=== PATIENT | male | born 1990 | race Caucasian/White ===

== ENCOUNTER 2020-05-03 06:47 | Emergency (ER) | payer BC ==
[~2020-05-03] VITALS: Ht 185.4 cm; Wt 113.0 kg
--- NOTE | 2020-05-03 07:17 | PHYS DOC ---
Past History Past Medical History: Kidney Stones Past Surgical History: Tonsillectomy Alcohol Use: None General Adult EDM: Chief Complaint: ABDOMINAL PAIN HPI: HPI: 30-year-old male presents with left flank pain and hematuria. He had generalized abdominal discomfort yesterday most of the day. He does thought it was gas pain. The pain moved to the left flank last night. He had some dark- colored urine overnight had a little bit of rick blood early this morning. He decided he should get it evaluated. His pain is 0 out of 10 at this time. He denies fever chills. He has had 1 previous kidney stone. Review of Systems: Review of Systems: Constitutional: Denies fever or chills Eyes: Denies change in visual acuity HENT: Denies nasal congestion or sore throat Respiratory: Denies cough or shortness of breath Cardiovascular: Denies chest pain or edema GI: Denies abdominal pain, nausea, vomiting, bloody stools or diarrhea : Denies dysuria Musculoskeletal: Denies back pain or joint pain Integument: Denies rash Neurologic: Denies headache, focal weakness or sensory changes Endocrine: Denies polyuria or polydipsia Lymphatic: Denies swollen glands Psychiatric: Denies depression or anxiety Heart Score: Risk Factors: Risk Factors: DM, Current or recent (<one month) smoker, HTN, HLP, family history of CAD, obesity. Risk Scores: Score 0 - 3: 2.5% MACE over next 6 weeks - Discharge Home Score 4 - 6: 20.3% MACE over next 6 weeks - Admit for Clinical Observation Score 7 - 10: 72.7% MACE over next 6 weeks - Early Invasive Strategies Allergies: Allergies: Allergies Coded Allergies Type Severity Reaction Last Updated Verified Iodine and Iodide Containing Produc Allergy Unknown 05/03/20 Yes Physical Exam: PE: Constitutional: Well developed, well nourished, no acute distress, non-toxic appearance. [] HENT: Normocephalic, atraumatic, bilateral external ears normal, oropharynx moist, no oral exudates, nose normal. [] Eyes: PERRLA, EOMI, conjunctiva normal, no discharge. [] Neck: Normal range of motion, no tenderness, supple, no stridor. [] Cardiovascular: Heart rate regular rhythm, no murmur [] Lungs & Thorax: Bilateral breath sounds clear to auscultation [] Abdomen: Bowel sounds normal, soft, no tenderness, no masses, no pulsatile masses. [] Skin: Warm, dry, no erythema, no rash. [] Back: No tenderness, no CVA tenderness. [] Extremities: No tenderness, no cyanosis, no clubbing, ROM intact, no edema. [] Neurologic: Alert and oriented X 3, normal motor function, normal sensory function, no focal deficits noted. [] Psychologic: Affect normal, judgement normal, mood normal. [] Current Patient Data: Vital Signs: Vital Signs Date Time Temp Pulse Resp B/P (MAP) Pulse Ox O2 Delivery O2 Flow Rate FiO2 05/03/20 07:00 98.0 60 16 134/89 (104) 99 Room Air EKG: EKG: [] Radiology/Procedures: Radiology/Procedures: [] Impressions: CT ABDOMEN PELVIS WO CONTRAST History: Reason: left flank pain,hx stones - No surgeries / Spl. Instructions: / History: Technique: Noncontrast examination of the abdomen and pelvis. Coronal and sagittal reconstructions were performed. Exposure: One or more of the following individualized dose reduction techniques were utilized for this examination: 1. Automated exposure control 2. Adjustment of the mA and/or kV according to patient size 3. Use of iterative reconstruction technique. Comparison: None Findings: Lower chest: No consolidation or pleural effusion. Abdomen and pelvis: The liver, spleen, adrenal glands, pancreas and gallbladder are unremarkable. No biliary ductal dilatation. Mild left hydronephrosis. Left perinephric and periureteral fat stranding. 5 x 3 mm left proximal ureteral obstructing calculus. Decompressed urinary bladder. Punctate nonobstructing bilateral renal calculi, left greater than right. No right hydronephrosis. Small left inferior renal hypodensity, likely cyst. Normal appendix. No evidence of bowel obstruction. No pathologic lymphadenopathy. No ascites. Bones: No pathologic osseous lesions. Impression: 1. 5 mm left proximal ureteral obstructing calculus contributing to mild left hydronephrosis with perinephric/periureteral fat stranding. 2. Bilateral nonobstructing intrarenal calculi. Electronically signed by: Yosvany Moore DO (05/03/2020 7:37 AM) [id number] DICTATED AND SIGNED BY: YOSVANY MOORE DO DATE: 05/03/20 0737 CC: JOAQUIM VILLELA DO; REINALDO RODRIGUEZ MD ~ Course & Med Decision Making: Course & Med Decision Making Pertinent Labs and Imaging studies reviewed. (See chart for details) The patient's labs are unremarkable. His urinalysis shows blood but no bacteria. His CT scan shows an obstructing 5 x 3 stone in the proximal ureter by a left with mild left hydronephrosis. His creatinine is currently normal. There is a possibility the stone will pass. I will discharge the patient with Flomax and [place] 5/325. I have also advised that he get a urology referral from his primary care physician today and get set up in case this does not pass. Patient stable for discharge at this time. [] Dragon Disclaimer: Dragon Disclaimer: This electronic medical record was generated, in whole or in part, using a voice recognition dictation system. Departure Departure: Impression: Primary Impression: Ureterolithiasis Additional Impression: Nephrolithiasis Disposition: HOME/RESIDENCE PRIOR TO ADM Condition: STABLE Referrals: REINALDO RODRIGUEZ MD (PCP) Patient Instructions: Kidney Stones, [id number] Hydrocodone Bit/Acetaminophen ([place] 5-325 TABLET) 1 Each Tablet 1 TAB PO PRN Q6HRS PRN for PAIN, #20 TAB 0 Refills Prov: JAOQUIM VILLELA DO 05/03/20 Tamsulosin Hcl (FLOMAX) 0.4 Mg Cap.er.24h 1 CAP PO DAILY for kidney stone for 14 Days, #14 CAP 0 Refills Prov: JOAQUIM VILLELA DO 05/03/20 Justification of Admission: Justification of Admission: Justification of Admission Dx: N/A JOAQUIM VILLELA DO May 03, 2020 07:17
[2020-05-03] MEDS ORDERED: IV NORMAL SALINE 1,000ML 1,000 ML IV ONE (07:30)
--- NOTE | 2020-05-03 07:40 | RAD ---
CT ABDOMEN PELVIS WO CONTRAST History: Reason: left flank pain,hx stones - No surgeries / Spl. Instructions: / History: Technique: Noncontrast examination of the abdomen and pelvis. Coronal and sagittal reconstructions were performed. Exposure: One or more of the following individualized dose reduction techniques were utilized for this examination: 1. Automated exposure control 2. Adjustment of the mA and/or kV according to patient size 3. Use of iterative reconstruction technique. Comparison: None Findings: Lower chest: No consolidation or pleural effusion. Abdomen and pelvis: The liver, spleen, adrenal glands, pancreas and gallbladder are unremarkable. No biliary ductal dilatation. Mild left hydronephrosis. Left perinephric and periureteral fat stranding. 5 x 3 mm left proximal ureteral obstructing calculus. Decompressed urinary bladder. Punctate nonobstructing bilateral renal calculi, left greater than right. No right hydronephrosis. Small left inferior renal hypodensity, likely cyst. Normal appendix. No evidence of bowel obstruction. No pathologic lymphadenopathy. No ascites. Bones: No pathologic osseous lesions. Impression: 1. 5 mm left proximal ureteral obstructing calculus contributing to mild left hydronephrosis with perinephric/periureteral fat stranding. 2. Bilateral nonobstructing intrarenal calculi. Electronically signed by: Yosvany Baez DO (05/03/2020 7:37 AM) [id number]
[2020-05-03 07:44] LABS: BASO # 0.1 x10^3/uL (0.0-0.2); BASO % 1 % (0-3); EOS # 0.2 x10^3/uL (0.0-0.7); EOS % 3 % (0-3); HEMATOCRIT 46.4 % (39.0-53.0); HEMOGLOBIN 16.1 g/dL (13.0-17.5); LYMPH # 2.4 x10^3/uL (1.0-4.8); LYMPH % 41 % (24-48); MEAN CORPUSCULAR HEMOGLOBIN 31 pg (25-35); MEAN CORPUSCULAR HGB CONC 35 g/dL (31-37); MEAN CORPUSCULAR VOLUME 89 fL (79-100); MONO # 0.5 x10^3/uL (0.0-1.1); MONO % 8 % (0-9); NEUT # 2.7 x10^3uL (1.8-7.7); NEUT % 47 % (31-73); PLATELET COUNT 235 x10^3/uL (140-400); RED BLOOD COUNT 5.24 x10^6/uL (4.30-5.70); RED CELL DISTRIBUTION WIDTH 13.5 % (11.5-14.5); WHITE BLOOD COUNT 5.8 x10^3/uL (4.0-11.0)
[2020-05-03 07:54] LABS: CALCIUM 8.6 mg/dL (8.5-10.1); CREATININE 1.2 mg/dL (0.7-1.3); GFR 70.2; POTASSIUM 4.1 mmol/L (3.5-5.1)
[2020-05-03 08:00] VITALS: BP 132/80
[2020-05-03 08:00] LABS: ALBUMIN/GLOBULIN RATIO 1.1 (1.0-1.7); TOTAL BILIRUBIN 0.4 mg/dL (0.2-1.0); TOTAL PROTEIN 7.7 g/dL (6.4-8.2)
[2020-05-03 08:03] LABS: BACTERIA,URINE 0 /HPF (0-FEW); CLARITY,URINE TURBID; COLOR,URINE BROWN; RBC,URINE TNTC /HPF (0-2); WBC,URINE OCC /HPF (0-4)
[2020-05-03] MEDS ORDERED: TAMS0.4C97 PO (08:23)
[2020-05-03] MEDS ORDERED: HYDR-3165 PO (08:23)
== END 2020-05-03 08:31 | disposition home or self-care (01) ==
LOC: ER 06:47
DX: N13.2 Hydronephrosis with renal and ureteral calculous obstruction (principal); Z87.442 Personal history of urinary calculi; Z91.041 Radiographic dye allergy status
CPT/HCPCS: 36415; 74176; 80053; 81001; 85025; 99284; J7030; 96360